=== PATIENT | female | born 1975 | race Caucasian/White ===

== ENCOUNTER 2018-05-04 11:05 | Observation (INO) | payer OTHER ==
[2018-05-04] MEDS ORDERED: ASPIRIN 81 MG CHEWABLE TABLET ONE (11:35)
[2018-05-04] MEDS ORDERED: NA CHLORIDE 0.9% 1,000 ML ONE (11:35)
[2018-05-04 12:00] LABS: Absolute Lymphocytes (CBC) 2.6 K/uL (0.7-4.9); Absolute Monocytes 0.6 K/uL (0.1-1.3); Absolute Neutrophil 4.3 K/uL (1.8-8.0); Basophils % 0.8 % (0-1.3); Eosinophils % 4.5 % (0-4.4); Hematocrit 39.7 % (36.0-45.0); Lymphocytes % 33.2 % (15.3-44.8); MCH 30.9 pg (27.0-35.0); MCV 88.5 fL (80-100); MPV 7.8 fL (7.6-11.3); Monocytes % 7.1 % (3.3-12.3); RBC Red Blood Cell Count 4.48 M/uL (3.86-4.86)
[2018-05-04 12:01] LABS: Protime INR 1.02
--- NOTE | 2018-05-04 12:08 | EDPHYS ---
Physician Documentation [facility] Name: Skylar Perez Age: 42 yrs Sex: Female : 1975 Arrival Date: 05/04/2018 Time: 11:08 Bed 6 Private MD: Niesha Carney ED Physician Larry Conlye HPI: 05/04 11:55 This 42 yrs old Female presents to ER via Ambulatory with complaints of ramón Palpitations, Numbness Of Arm, Breathing Difficulty. 11:55 The patient presents with a history of irregular heart beat, heart racing. Context: The ramón symptoms occur with light activity. Onset: The symptoms/episode began/occurred just prior to arrival. Modifying factors: The symptoms are aggravated by nothing. Associated signs and symptoms: Pertinent positives: SOB. Severity of symptoms: At their worst the symptoms were mild in the emergency department the symptoms have improved. The patient has not experienced similar symptoms in the past. 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 - Social history:: Smoking status: Patient/guardian denies using tobacco. - Ebola Screening: : Patient denies travel to an Ebola-affected area in the 21 days before illness onset. ROS: 12:04 Constitutional: Negative for fever, chills, and weight loss, Eyes: Negative for injury, ramón pain, redness, and discharge, ENT: Negative for injury, pain, and discharge, Neck: Negative for injury, pain, and swelling, Respiratory: Negative for shortness of breath, cough, wheezing, and pleuritic chest pain, Abdomen/GI: Negative for abdominal pain, nausea, vomiting, diarrhea, and constipation, Back: Negative for injury and pain, : Negative for injury, bleeding, discharge, and swelling, MS/Extremity: Negative for injury and deformity, Skin: Negative for injury, rash, and discoloration, Neuro: Negative for headache, weakness, numbness, tingling, and seizure, Psych: Negative for depression, anxiety, suicide ideation, homicidal ideation, and hallucinations, Allergy/Immunology: Negative for hives, rash, and allergies, Endocrine: Negative for neck swelling, polydipsia, polyuria, polyphagia, and marked weight changes, Hematologic/Lymphatic: Negative for swollen nodes, abnormal bleeding, and unusual bruising. 12:04 Cardiovascular: Positive for chest pain, palpitations. Exam: 12:04 Constitutional: This is a well developed, well nourished patient who is awake, alert, ramón and in no acute distress. Head/Face: Normocephalic, atraumatic. Eyes: Pupils equal round and reactive to light, extra-ocular motions intact. Lids and lashes normal. Conjunctiva and sclera are non-icteric and not injected. Cornea within normal limits. Periorbital areas with no swelling, redness, or edema. ENT: Nares patent. No nasal discharge, no septal abnormalities noted. Tympanic membranes are normal and external auditory canals are clear. Oropharynx with no redness, swelling, or masses, exudates, or evidence of obstruction, uvula midline. Mucous membranes moist. Neck: Trachea midline, no thyromegaly or masses palpated, and no cervical lymphadenopathy. Supple, full range of motion without nuchal rigidity, or vertebral point tenderness. No Meningismus. Chest/axilla: Normal chest wall appearance and motion. Nontender with no deformity. No lesions are appreciated. Cardiovascular: Regular rate and rhythm with a normal S1 and S2. No gallops, murmurs, or rubs. Normal PMI, no JVD. No pulse deficits. Respiratory: Lungs have equal breath sounds bilaterally, clear to auscultation and percussion. No rales, rhonchi or wheezes noted. No increased work of breathing, no retractions or nasal flaring. Abdomen/GI: Soft, non-tender, with normal bowel sounds. No distension or tympany. No guarding or rebound. No evidence of tenderness throughout. Back: No spinal tenderness. No costovertebral tenderness. Full range of motion. Skin: Warm, dry with normal turgor. Normal color with no rashes, no lesions, and no evidence of cellulitis. MS/ Extremity: Pulses equal, no cyanosis. Neurovascular intact. Full, normal range of motion. Neuro: Awake and alert, GCS 15, oriented to person, place, time, and situation. Cranial nerves II-XII grossly intact. Motor strength 5/5 in all extremities. Sensory grossly intact. Cerebellar exam normal. Normal gait. Psych: Awake, alert, with orientation to person, place and time. Behavior, mood, and affect are within normal limits. Vital Signs: 11:12 BP 149 / 88; Pulse 87; Resp 18; Temp 99.0(TE); Pulse Ox 96% on R/A; Weight 90.72 kg aj1 (R); Height 5 ft. 10 in. (177.80 cm) (R); Pain 0/10; 12:24 BP 122 / 91; Pulse 67; Resp 16; Pulse Ox 98% on R/A; la1 13:45 BP 111 / 81; Pulse 60; Resp 13; Pulse Ox 99% on R/A; mh5 14:04 BP 116 / 74; Pulse 71; Resp 16; Pulse Ox 98% on R/A; la1 11:12 Body Mass Index 28.70 (90.72 kg, 177.80 cm) aj1 MDM: 11:14 Patient medically screened. [facility] 12:05 Data reviewed: vital signs, nurses notes, lab test result(s), EKG, radiologic studies, ramón plain films. 05/04 11:17 Order name: Basic Metabolic Panel; Complete Time: 13:25 [facility] 05/04 11:17 Order name: CBC with Diff; Complete Time: 12:16 [facility] 05/04 11:17 Order name: LFT's; Complete Time: 13:25 [facility] 05/04 11:17 Order name: Magnesium; Complete Time: 13:25 [facility] 05/04 11:17 Order name: NT PRO-BNP; Complete Time: 13:25 [facility] 05/04 11:17 Order name: PT-INR; Complete Time: 12:16 [facility] 05/04 11:17 Order name: Troponin (emerg Dept Use Only); Complete Time: 13:25 [facility] 05/04 11:17 Order name: Lipase; Complete Time: 13:25 [facility] 05/04 11:17 Order name: Urine Culture [facility] 05/04 11:17 Order name: TSH; Complete Time: 13:25 [facility] 05/04 12:35 Order name: Urine Dipstick--Ancillary (enter results) eb 05/04 12:35 Order name: Urine --Ancillary (enter results) eb 05/04 13:42 Order name: Urine --Ancillary EDMS 05/04 13:42 Order name: Urine Dipstick-Ancillary [facility] 05/04 11:17 Order name: XRAY Chest (1 view); Complete Time: 13:25 [facility] 05/04 11:17 Order name: EKG; Complete Time: 11: [facility] 05/04 11:17 Order name: Cardiac monitoring; Complete Time: 11:29 [facility] 05/04 11:17 Order name: EKG - Nurse/Tech; Complete Time: 11:29 [facility] 05/04 11:17 Order name: IV Saline Lock; Complete Time: 11:52 [facility] 05/04 11:17 Order name: Labs collected and sent; Complete Time: 11:52 [facility] 05/04 11:17 Order name: O2 Per Protocol; Complete Time: : [facility] 05/04 11:17 Order name: O2 Sat Monitoring; Complete Time: : [facility] 05/04 11:17 Order name: Urine Dipstick-Ancillary (obtain specimen); Complete Time: 12:19 [facility] 05/04 11:17 Order name: Urine Test (obtain specimen); Complete Time: 12:19 [facility] 05/04 12:13 Order name: CONS Physician Consult EDNH Administered Medications: 11:52 Drug: NS 0.9% 1000 ml Route: IV; Rate: 125 ml/hr; Site: right antecubital; la1 11:52 Drug: Aspirin 81 mg Route: PO; la1 12:09 Follow up: Response: No adverse reaction em 12:19 Drug: Lopressor (metoprolol TARTRATE) 50 mg Route: PO; la1 12:28 Follow up: Response: No adverse reaction la1 12:19 Drug: Lovenox 1 mg/kg Route: Sub-Q; Site: right lower abdomen; la1 12:28 Follow up: Response: No adverse reaction la1 12:19 Drug: Pepcid 20 mg Route: IVP; Site: right antecubital; la1 12:28 Follow up: Response: No adverse reaction la1 Disposition: 05/04/18 12:07 Hospitalization ordered by Yun Orozco for Observation. Preliminary diagnosis are Palpitations, Chest pain, unspecified. - Bed requested for Telemetry/MedSurg (observation). - Status is Observation. iw - Condition is Stable. - Problem is new. - Symptoms have improved. UTI on Admission? No Signatures: Dispatcher [employer] EDRimma Fraser, RN RN aj1 Misty Padron RN RN Larry Girard MD MD cha Williams, Irene RN SANDRINE iw Jose Juan Perez RN RN laPaddy Herrera DIVISION CHAIR em Corrections: (The following items were deleted from the chart) 14:35 12:07 Hospitalization Ordered by Yun Orozco MD for Observation. Preliminary diagnosis dw is Palpitations; Chest pain, unspecified. Bed requested for Telemetry/MedSurg (observation). Status is Observation. Condition is Stable. Problem is new. Symptoms have improved. UTI on Admission? No. ramón 15:12 14:35 05/04/2018 12:07 Hospitalization Ordered by Yun Orozco MD for Observation. iw Preliminary diagnosis is Palpitations; Chest pain, unspecified. Bed requested for Telemetry/MedSurg (observation). Status is Observation. Condition is Stable. Problem is new. Symptoms have improved. UTI on Admission? No. dw
--- NOTE | 2018-05-04 12:08 | ER ---
Nurse's Notes [facility] Name: Skylar Perez Age: 42 yrs Sex: Female : 1975 Arrival Date: 05/04/2018 Time: 11:08 Bed 6 Private MD: Niesha Carney Diagnosis: Palpitations;Chest pain, unspecified Presentation: 05/04 11:09 Presenting complaint: Patient states: "I [place] sitting in [place] [employer] [place] and all aj1 of the sudden it felt like my heart was beating out of my chest wall, and I was very short of breath. Right after that my left arm began to tingle" Reports that she has been having chest pain for the past week. Hand flower cheniller are equal. Patient ambulated to triage with a steady gait. Transition of care: patient was not received from another setting of care. Onset of symptoms was May 04, 2018 at 10:40. Risk Assessment: Do you want to hurt yourself or someone else? Patient reports no desire to harm self or others. Initial Sepsis Screen: Does the patient meet any 2 criteria? No. Patient's initial sepsis screen is negative. Does the patient have a suspected source of infection? No. Patient's initial sepsis screen is negative. Care prior to arrival: None. 11:09 Method Of Arrival: Ambulatory aj1 11:09 Acuity: MONIK 3 aj1 Triage Assessment: 11:12 General: Appears in no apparent distress. uncomfortable, Behavior is calm, cooperative, aj1 appropriate for age. Pain: Denies pain. Neuro: Level of Consciousness is awake, alert, obeys commands. Cardiovascular: Patient's skin is warm and dry. Respiratory: Reports shortness of breath that's now resolved the patient reports symptoms have resolved. Respiratory: Onset: The symptoms/episode began/occurred today. 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 - Social history:: Smoking status: Patient/guardian denies using tobacco. - Ebola Screening: : Patient denies travel to an Ebola-affected area in the 21 days before illness onset. Screenin:51 Abuse screen: Denies threats or abuse. Nutritional screening: No deficits noted. la1 Tuberculosis screening: No symptoms or risk factors identified. Fall Risk None identified. Assessment: 11:51 General: Appears in no apparent distress. Behavior is calm, cooperative. Neuro: Level la1 of Consciousness is awake, alert, obeys commands, Oriented to person, place, time, situation. Cardiovascular: Capillary refill < 3 seconds Patient's skin is warm and dry. Rhythm is sinus rhythm. Cardiovascular: Denies chest pain, lightheadedness, palpitations, shortness of breath. Respiratory: Airway is patent Respiratory effort is even, unlabored, Respiratory pattern is regular, symmetrical, Breath sounds are clear bilaterally. GI: No signs and/or symptoms were reported involving the gastrointestinal system. : No signs and/or symptoms were reported regarding the genitourinary system. 12:25 Reassessment: Patient appears in no apparent distress at this time. No changes from la1 previously documented assessment. Patient and/or family updated on plan of care and expected duration. Pain level reassessed. 14:03 Reassessment: Patient appears in no apparent distress at this time. No changes from la1 previously documented assessment. Patient and/or family updated on plan of care and expected duration. Pain level reassessed. Vital Signs: 11:12 BP 149 / 88; Pulse 87; Resp 18; Temp 99.0(TE); Pulse Ox 96% on R/A; Weight 90.72 kg aj1 (R); Height 5 ft. 10 in. (177.80 cm) (R); Pain 0/10; 12:24 BP 122 / 91; Pulse 67; Resp 16; Pulse Ox 98% on R/A; la1 13:45 BP 111 / 81; Pulse 60; Resp 13; Pulse Ox 99% on R/A; mh5 14:04 BP 116 / 74; Pulse 71; Resp 16; Pulse Ox 98% on R/A; la1 11:12 Body Mass Index 28.70 (90.72 kg, 177.80 cm) aj1 ED Course: 11:08 Patient arrived in ED. mr 11:09 Niesha Carney MD is Private Physician. mr 11:11 Triage completed. aj1 11:12 Arm band placed on Patient placed in an exam room. aj1 11:14 Larry Conley MD is Attending Physician. ramón 11:22 Jose Juan Perez, SANDRINE is Primary Nurse. la1 11:41 XRAY Chest (1 view) In Process Unspecified. EDMS 11:51 Placed in gown. Bed in low position. Call light in reach. la1 11:51 No provider procedures requiring assistance completed. Inserted saline lock: 20 gauge la1 in right antecubital area, using aseptic technique. Blood collected. 12:06 Yun Orozco MD is Hospitalizing Provider. ramón Administered Medications: 11:52 Drug: NS 0.9% 1000 ml Route: IV; Rate: 125 ml/hr; Site: right antecubital; la1 11:52 Drug: Aspirin 81 mg Route: PO; la1 12:09 Follow up: Response: No adverse reaction em 12:19 Drug: Lopressor (metoprolol TARTRATE) 50 mg Route: PO; la1 12:28 Follow up: Response: No adverse reaction la1 12:19 Drug: Lovenox 1 mg/kg Route: Sub-Q; Site: right lower abdomen; la1 12:28 Follow up: Response: No adverse reaction la1 12:19 Drug: Pepcid 20 mg Route: IVP; Site: right antecubital; la1 12:28 Follow up: Response: No adverse reaction la1 Outcome: 12:07 Decision to Hospitalize by Provider. ramón 15:12 Patient left the ED. iw Signatures: Dispatcher [employer] Rimma Koenig RN RN aj1 Larry Conley MD MD cha Rivera, Etta Paddy Mullen, FIELD ARTILLERY TARGETING TECHNICIAN FIELD ARTILLERY TARGETING TECHNICIAN Jennifer Singh, SANDRINE DELUCA Jose Juan Perez RN RN Vanesa Flaherty 5
[2018-05-04] MEDS ORDERED: METOPROLOL TAR 50 MG TAB ONE (12:15)
[2018-05-04] MEDS ORDERED: ENOXAPARIN 100 MG/ML SYR SQ ONE (12:15)
[2018-05-04] MEDS ORDERED: FAMOTIDINE 20 MG/2 ML VIAL IV ONE (12:15)
--- NOTE | 2018-05-04 12:40 | RAD REPORT ---
EXAM DESCRIPTION: RAD - Chest Single View - 05/04/2018 11:41 am CLINICAL HISTORY: CHEST PAIN Chest pain. COMPARISON: CHEST SINGLE VIEW dated 03/26/2011; CHEST SINGLE VIEW dated 07/26/2008; CHEST PA AND LAT 2 VIEW dated 10/13/1999 FINDINGS: Portable technique limits examination quality. The lungs are grossly clear. The heart is normal in size. No displaced fractures. IMPRESSION: No acute intrathoracic process suspected.
[2018-05-04 13:06] LABS: ALT/SGPT 29 U/L (12-78); AST/SGOT 18 U/L (15-37); Albumin 3.5 g/dL (3.4-5.0); Alkaline Phosphatase 68 U/L (45-117); BUN Blood Urea Nitrogen 18 mg/dL (7-18); Bicarbonate 26 mmol/L (21-32); Bilirubin Direct < 0.1 mg/dL (0-0.2); Bilirubin Total 0.2 mg/dL (0.2-1.0); Glucose Level 92 mg/dL (74-106); Lipase 125 U/L (73-393); Magnesium 2.1 mg/dL (1.8-2.4); NT PRO-BNP 45 pg/mL (<125); Potassium 3.8 mmol/L (3.5-5.1); Protein, Total 7.3 g/dL (6.4-8.2); Sodium Level 140 mmol/L (136-145); Troponin (Emerg Dept Use Only) < 0.02 ng/mL (0.0-0.045)
[2018-05-04 13:42] LABS: Urine Blood NEGATIVE (NEG); Urine Glucose NEGATIVE (NEG); Urine Protein NEGATIVE (NEG); Urine Specific Gravity 1.015 (1.005-1.030)
[2018-05-04 14:58] VITALS: BMI 28.7
[2018-05-04] MEDS ORDERED: ACETAMINOPHEN 500 MG TAB PO PRN (16:33)
[2018-05-04] MEDS ORDERED: POTASSIUM CL SA 10 MEQ TAB PO ONE (16:34)
[2018-05-04 17:16] VITALS: O2SAT 100
[2018-05-04] MEDS ORDERED: MORPHINE 2 MG/ML SYR IV PRN (18:24)
[2018-05-04] MEDS ORDERED: NITROGLYCERIN 0.4 MG/TAB SL PRN (18:24)
--- NOTE | 2018-05-04 18:28 | P.HP ---
Certification for Inpatient Patient admitted to: Observation With expected LOS: <2 Midnights Practitioner: I am a practitioner with admitting privileges, knowledge of patient current condition, hospital course, and medical plan of care. Services: Services provided to patient in accordance with Admission requirements found in Title 42 Section 412.3 of the Code of Federal Regulations Patient History Date of Service: 05/05/18 Reason for admission: Chest pain/burning History of Present Illness: This is a 43-year-old female with no past medical history who was admitted for chest pain and palpitations. Patient reports burning substernal pain that has been intermittent for the last couple weeks. She denies any radiation of the pain. Denies any nausea, vomiting, abdominal pain, dizziness, shortness of breath, vision changes, syncopal/presyncopal episodes. He states that in the ER , she was given Pepcid which resolved her chest pain. She has not had any recurrent chest pain since then. Allergies azithromycin [From Zithromax Z-Nolan] Allergy (Verified 07/15/11 21:32) Nausea/Vomiting doxycycline Allergy (Verified 07/15/11 21:31) Nausea/Vomiting Home Medications: Topamax 100 mg PO DAILY 07/15/11 Loratadine [Claritin*] 10 mg PO DAILY 05/04/18 Trazodone [Desyrel*] 50 mg PO BID PRN 05/04/18 - Past Medical/Surgical History Has patient received pneumonia vaccine in the past: Yes Diabetic: No - Social History Smoking Status: Never smoker Alcohol use: Yes CD- Drugs: No Caffeine use: Yes Place of Residence: Home Review of Systems Unremarkable Physical Examination - Vital Signs Temperature: 97.4 F Blood Pressure: 111/68 Pulse: 67 Respirations: 18 Pulse Ox (%): 94 - Physical Exam General: Alert, In no apparent distress, Oriented x3 HEENT: Atraumatic, PERRLA, Mucous membr. moist/pink, EOMI, Sclerae nonicteric Neck: Supple, 2+ carotid pulse no bruit, No LAD, Without JVD or thyroid abnormality Respiratory: Clear to auscultation bilaterally, Normal air movement Cardiovascular: Regular rate/rhythm, Normal S1 S2 Gastrointestinal: Normal bowel sounds, No tenderness Musculoskeletal: No tenderness Integumentary: No rashes Neurological: Normal gait, Normal speech, Normal strength at 5/5 x4 extr, Normal tone, Normal affect Lymphatics: No axilla or inguinal lymphadenopathy - Studies Laboratory Data (last 24 hrs) 05/04/18 11:45: PT 12.0, INR 1.02 05/04/18 11:45: WBC 7.8, Hgb 13.9, Hct 39.7, Plt Count 255 05/04/18 11:45: Sodium 140, Potassium 3.8, BUN 18, Creatinine 0.60, Glucose 92, Magnesium 2.1, Total Bilirubin 0.2, AST 18, ALT 29, Alkaline Phosphatase 68, Lipase 125 Assessment and Plan - Plan Chest pain rule out acute myocardial infarction 1. Serial troponins and EKG 2. Anti-platelet therapy, anti coagulation, beta-alexander, statin, and O2 as needed 5. IV morphine for pain 6. GI AND DVT prophylaxis - Advance Directives Does patient have a Living Will: No Does patient have a Durable POA for Healthcare: No
[2018-05-04] MEDS ORDERED: ATORVASTATIN 40 MG TAB PO SCH (21:00)
[2018-05-05 04:43] LABS: Absolute Lymphocytes (CBC) 3.2 K/uL (0.7-4.9); Absolute Monocytes 0.7 K/uL (0.1-1.3); Absolute Neutrophil 3.8 K/uL (1.8-8.0); Hematocrit 37.3 % (36.0-45.0); Lymphocytes % 38.5 % (15.3-44.8); MCH 31.1 pg (27.0-35.0); MCV 89.3 fL (80-100); MPV 8.1 fL (7.6-11.3); Monocytes % 8.6 % (3.3-12.3); RBC Red Blood Cell Count 4.18 M/uL (3.86-4.86)
[2018-05-05 04:56] LABS: Albumin 3.1 g/dL (3.4-5.0); Bilirubin Total 0.2 mg/dL (0.2-1.0); Potassium 4.3 mmol/L (3.5-5.1); Protein, Total 6.4 g/dL (6.4-8.2)
[2018-05-05] MEDS ORDERED: METOPROLOL TAR 25 MG TAB PO SCH (06:00)
--- NOTE | 2018-05-05 07:34 | EKG ---
Test Date: 2018-05-04 Test Time: 20:23:43 Straightening Machine Operator: RT-O MEASUREMENT RESULTS: Intervals: Rate: 58 OK: 186 QRSD: 94 QT: 426 QTc: 418 [place]: P: 76 OK: 186 QRS: 78 T: 62 INTERPRETIVE STATEMENTS: Sinus bradycardia Otherwise normal ECG Compared to ECG 03/27/2011 09:42:13 Sinus rhythm no longer present Electronically Signed On 05-05-18 07:33:23 GARNETT MECHANIC by Chau Najera
--- NOTE | 2018-05-05 07:37 | EKG ---
Test Date: 2018-05-04 Test Time: 11:32:29 Burrito Maker: LA MEASUREMENT RESULTS: Intervals: Rate: 82 AR: 168 QRSD: 92 QT: 366 QTc: 427 [place]: P: 64 AR: 168 QRS: 59 T: 33 INTERPRETIVE STATEMENTS: Normal sinus rhythm with sinus arrhythmia Possible Left atrial enlargement Nonspecific T wave abnormality Abnormal ECG Compared to ECG 03/27/2011 09:42:13 T-wave abnormality now present Electronically Signed On 05-05-18 07:36:54 VALUE ANALYST by Chau Najera
[2018-05-05] MEDS ORDERED: LORATADINE 10 MG TAB PO SCH (09:00)
[2018-05-05] MEDS ORDERED: TOPIRAMATE 100 MG TAB PO SCH (09:00)
[2018-05-05] MEDS ORDERED: ENOXAPARIN 40 MG/0.4 ML SQ SCH (09:00)
[2018-05-05] MEDS ORDERED: ASPIRIN EC 81 MG TAB PO SCH (09:00)
--- NOTE | 2018-05-05 12:47 | CON ---
CARDIOLOGY CONSULT History Of Present Illness: Mrs. Perez is 43. She was sitting in a car and had a 7-second episode of heart racing, beating irregularly. While it was there, she felt it was difficult to breathe. She did not lose consciousness and not in pain. She has not had that before. The patient does not have any history of heart disease. She takes loratadine, trazodone, and Topamax. She has migraine heada ches. No diabetes. No hypertension. No dyslipidemia. She uses no tobacco, rare alcohol. No illic it drugs. Allergies: ALLERGIC TO AZITHROMYCIN, DOXYCYCLINE. Physical Examination: Vital Signs: 5 feet 10 inches, 200 pounds. HEENT: Normal. Lungs: Clear. Heart Exam: Within normal limits. Carotids: No bruit. Extremities: Normal. Diagnostic Data: The electrocardiogram is within normal limits, although there is sinus arrhythmia o n normal finding. Chest x-ray is normal and her cardiac enzymes are normal. All of her blood tests look normal. Impression: My impression is the patient had transient arrhythmia. I think we should have her get a n echocardiogram and wear a monitor for a month and see what we learn. Based on her age and overall health, the most likely arrhythmia would be supraventricular tachycardia AV node re-entrant, but it c ould be atrial fibrillation or flutter, although 7-second spells of atrial fibrillation are very unus ual. At this point, I would not start a medication. I would allow her to do echo, get the monitor placed, and see her in the office in about a month. LEOBARDO/KARISSA Voice ID: [id number] Report ID: [id number]
[2018-05-05 19:04] VITALS: BP 111/68; TEMP 97.4
--- NOTE | 2018-05-05 19:06 | P.SSS ---
Patient History Date of Service: 05/05/18 Reason for admission: Chest pain/burning History of Present Illness: This is a 43-year-old female with no past medical history who was admitted for chest pain and palpitations. Patient reports burning substernal pain that has been intermittent for the last couple weeks. She denies any radiation of the pain. Denies any nausea, vomiting, abdominal pain, dizziness, shortness of breath, vision changes, syncopal/presyncopal episodes. He states that in the ER , she was given Pepcid which resolved her chest pain. She has not had any recurrent chest pain since then. Allergies azithromycin [From Zithromax Z-Nolan] Allergy (Verified 07/15/11 21:32) Nausea/Vomiting doxycycline Allergy (Verified 07/15/11 21:31) Nausea/Vomiting Home Medications: Topamax 100 mg PO DAILY 07/15/11 RX: Loratadine [Claritin*] 10 mg PO DAILY 05/04/18 RX: Trazodone [Desyrel*] 50 mg PO BID PRN 05/04/18 - Past Medical/Surgical History Has patient received pneumonia vaccine in the past: Yes Diabetic: No - Social History Smoking Status: Never smoker Alcohol use: Yes CD- Drugs: No Caffeine use: Yes Place of Residence: Home Review of Systems As noted Physical Examination - Vital Signs Temperature: 97.4 F Blood Pressure: 111/68 Pulse: 67 Respirations: 18 Pulse Ox (%): 94 - Physical Exam General: Alert, In no apparent distress, Oriented x3 HEENT: Atraumatic, PERRLA, Mucous membr. moist/pink, EOMI, Sclerae nonicteric Neck: Supple, 2+ carotid pulse no bruit, No LAD, Without JVD or thyroid abnormality Respiratory: Clear to auscultation bilaterally, Normal air movement Cardiovascular: Regular rate/rhythm, Normal S1 S2 Gastrointestinal: Normal bowel sounds, No tenderness Musculoskeletal: No tenderness Integumentary: No rashes Neurological: Normal gait, Normal speech, Normal strength at 5/5 x4 extr, Normal tone, Normal affect Lymphatics: No axilla or inguinal lymphadenopathy Treatment Summary: Patient was admitted for chest pain, rule out acute myocardial infarction. She was seen by Cardiology, cleared for discharge from cardiology point of view. If troponins remain negative, labs remained stable, vitals also remained stable throughout the stay. Per cardiology, she does see an event monitor and echo. But that will be done as an outpatient basis with cardiology. Differential pad extractor tender given to patient upon discharge. At the time of discharge, patient was symptom free, hemodynamically stable and she was tolerating and regular diet without any concerns. Her diagnosis and symptoms were explained to her, all questions were answered and patient verbalized understanding. - Disposition Discharge Date: 05/05/18 Disposition: ROUTINE DISCHARGE Condition: GOOD Patient Discharge Instructions: Please Follow up with your primary care physician in 1 week. Please Follow up with cardiology in 3-4 weeks. Information provided Diet: Regular Activity: Ad benjamin Physician Review: Patient Assessed, Agree with Above Assessment and Plan Time Spent Managing Pts Care (In Minutes): 45
== END 2018-05-05 14:10 | disposition home or self-care (01) ==
LOC: ER 11:05 → ERHOLD 12:08 → 4TH 15:04
PROVIDERS: ADMIT Family Medicine; ATTEND Family Medicine
DX: R07.9 Chest pain, unspecified (principal); R00.2 Palpitations
CPT/HCPCS: 36415; 71045; 80048; 80053; 80061; 80076; 81003; 81025; 83690; 83735; 83880; 84443; 84484; 85025; 85610; 87086; 87088; 93005; 94760; 96372; 96374; 99284; G0378; J1650; J7030

== ENCOUNTER 2019-06-20 18:30 | Emergency (ER) | payer OTHER ==
--- OUTSIDE RECORDS SUMMARY | 2019-06-20 18:33 | XMS REPORT ---
:1975 Author Organization eClinicalWorks Care Team Providers Name Role Phone Niesha Carney Provider Role Unavailable Allergies No Known Allergies Problems Problem Type Condition Code Onset Dates Condition Status Problem Encounter for gynecological Z01.419 Active examination without abnormal finding Problem BMI 29.0-29.9,adult Z68.29 Active Problem Encounter for screening mammogram Z12.31 Active for breast cancer Problem Hyperglycemia R73.9 Active Problem Anxiety F41.9 Active Problem Migraine G43.909 Active Medications No Known Medications Results No Known Results Summary Purpose eClinicalWorks Submission
[2019-06-20] MEDS ORDERED: KETOROLAC 30 MG/ML INJ ONE (20:18)
[2019-06-20] MEDS ORDERED: AMLODIPINE 5 MG TAB ONE ×2 (20:19→20:36)
--- NOTE | 2019-06-20 20:41 | EDPHYS ---
Physician Documentation [facility] Name: Skylar Perez Age: 44 yrs Sex: Female : 1975 Arrival Date: 06/20/2019 Time: 18:32 Bed 13 Private MD: Niesha Carney ED Physician Larry Conley HPI: 06/20 20:11 This 44 yrs old Female presents to ER via Ambulatory with complaints of ramón Blurred Vision, Eye Problem. 20:11 The patient is experiencing pain, bonita right eye. Onset: The symptoms/episode ramón began/occurred 3 day(s) ago. 20:12 Duration: the symptoms are intermittent. Aggravated by nothing. Alleviated by nothing. ramón Associated signs and symptoms: Pertinent positives: headache. The patient complains of pain to the top of head, forehead and right eye. Onset: The symptoms/episode began/occurred 2 day(s) ago. Associated signs and symptoms: The patient has no apparent associated signs or symptoms. Historical: - Allergies: 18:44 Azithromycin; ss 18:44 Doxycycline; ss - PMHx: 18:44 Migraines; Chronic fatigue syndrome; ss - PSHx: 18:44 oral surgery; ss - Immunization history:: Adult Immunizations up to date. - Social history:: Smoking status: Patient/guardian denies using tobacco. - Ebola Screening: : Patient denies exposure to infectious person Patient denies travel to an Ebola-affected area in the 21 days before illness onset. - Family history:: not pertinent. ROS: 20:12 Constitutional: Negative for fever, chills, and weight loss, ENT: Negative for injury, ramón pain, and discharge, Neck: Negative for injury, pain, and swelling, Cardiovascular: Negative for chest pain, palpitations, and edema, Respiratory: Negative for shortness of breath, cough, wheezing, and pleuritic chest pain, Abdomen/GI: Negative for abdominal pain, nausea, vomiting, diarrhea, and constipation, Back: Negative for injury and pain, : Negative for injury, bleeding, discharge, and swelling, MS/Extremity: Negative for injury and deformity, Skin: Negative for injury, rash, and discoloration, Psych: Negative for depression, anxiety, suicide ideation, homicidal ideation, and hallucinations, Allergy/Immunology: Negative for hives, rash, and allergies, Endocrine: Negative for neck swelling, polydipsia, polyuria, polyphagia, and marked weight changes, Hematologic/Lymphatic: Negative for swollen nodes, abnormal bleeding, and unusual bruising. 20:12 Eyes: Positive for pain, redness. 20:12 Neuro: Positive for headache. Exam: 20:12 Constitutional: This is a well developed, well nourished patient who is awake, alert, ramón and in no acute distress. Head/Face: Normocephalic, atraumatic. ENT: Nares patent. No nasal discharge, no septal abnormalities noted. Tympanic membranes are normal and external auditory canals are clear. Oropharynx with no redness, swelling, or masses, exudates, or evidence of obstruction, uvula midline. Mucous membranes moist. Neck: Trachea midline, no thyromegaly or masses palpated, and no cervical lymphadenopathy. Supple, full range of motion without nuchal rigidity, or vertebral point tenderness. No Meningismus. Chest/axilla: Normal chest wall appearance and motion. Nontender with no deformity. No lesions are appreciated. Cardiovascular: Regular rate and rhythm with a normal S1 and S2. No gallops, murmurs, or rubs. Normal PMI, no JVD. No pulse deficits. Respiratory: Lungs have equal breath sounds bilaterally, clear to auscultation and percussion. No rales, rhonchi or wheezes noted. No increased work of breathing, no retractions or nasal flaring. Abdomen/GI: Soft, non-tender, with normal bowel sounds. No distension or tympany. No guarding or rebound. No evidence of tenderness throughout. Back: No spinal tenderness. No costovertebral tenderness. Full range of motion. Skin: Warm, dry with normal turgor. Normal color with no rashes, no lesions, and no evidence of cellulitis. MS/ Extremity: Pulses equal, no cyanosis. Neurovascular intact. Full, normal range of motion. Neuro: Awake and alert, GCS 15, oriented to person, place, time, and situation. Cranial nerves II-XII grossly intact. Motor strength 5/5 in all extremities. Sensory grossly intact. Cerebellar exam normal. Normal gait. Psych: Awake, alert, with orientation to person, place and time. Behavior, mood, and affect are within normal limits. 20:12 Eyes: Periorbital structures: appear normal, no acute changes, Pupils: no acute changes, equal, round, and reactive to light and accomodation, Extraocular movements: no acute changes, Conjunctiva: subconjunctival hemorrhage(s), seen in the right eye, at 3 o'clock. Vital Signs: 18:44 BP 147 / 91; Pulse 87; Resp 17; Temp 98.8(TE); Pulse Ox 98% on R/A; Weight 86.18 kg; ss Height 5 ft. 10 in. (177.80 cm); Pain 3/10; 21:15 BP 133 / 80; Pulse 80; Resp 18; Temp 98; Pulse Ox 100% on R/A; mg2 18:44 Body Mass Index 27.26 (86.18 kg, 177.80 cm) ss MDM: 19:20 Patient medically screened. [facility] 20:14 Data reviewed: vital signs, nurses notes, lab test result(s), radiologic studies, CT ramón scan. 06/20 20:30 Order name: Urine Dipstick--Ancillary (enter results) mw2 06/20 20:10 Order name: CT Head Brain wo Cont [facility] 06/20 20:10 Order name: Urine Dipstick-Ancillary (obtain specimen); Complete Time: 20:23 [facility] 06/20 20:30 Order name: Urine Test (obtain specimen); Complete Time: 20:39 [facility] Administered Medications: 20:39 Drug: Norvasc 5 mg Route: PO; 20:39 Drug: TORadol 60 mg Route: IM; Site: left gluteus; Disposition: 06/20/19 20:40 Discharged to Home. Impression: Headache, Essential (primary) hypertension. - Condition is Stable. - Discharge Instructions: General Headache Without Cause, Migraine Headache, Hypertension, Hypertension, Rfdw-zs-Bszt, Migraine Headache, Zgpf-sx-Evrk, How to Take Your Blood Pressure, Ntzi-ef-Laul, General Headache Without Cause, Sctk-ib-Bhma, Managing Your Hypertension. - Prescriptions for Fioricet with Codeine 50- 325-40-30 mg Oral capsule - take 1 capsule by ORAL route every 4 hours as needed not to exceed 6 capsules per 24hrs; 24 capsule. Norvasc 2.5 mg Oral tablet - take 1 tablet by ORAL route once daily; 20 tablet. Zofran 4 mg Oral Tablet - take 1 tablet by ORAL route every 12 hours As needed; 14 tablet. - Medication Reconciliation Form, Thank You Letter, Antibiotic Education, Prescription Opioid Use form. - Follow up: Niesha Duqueurban; When: 2 - 3 days; Reason: Recheck today's complaints, Continuance of care, Re-evaluation by your physician. Follow up: Aaron Montoya; When: 2 - 3 days; Reason: Recheck today's complaints, Re-evaluation by your physician. - Problem is new. - Symptoms have improved. Signatures: Dispatcher [employer] EDVA Larry Conley MD MD cha Smirch, Shelby, RN RN ss Willi Benavides Michele, RN RN mg2 Corrections: (The following items were deleted from the chart) 21:16 20:40 06/20/2019 20:40 Discharged to Home. Impression: Headache; Essential (primary) mg2 hypertension. Condition is Stable. Discharge Instructions: General Headache Without Cause, Migraine Headache, Hypertension, Hypertension, Vurt-sw-Mzut, Migraine Headache, Ucvs-uc-Kukh, How to Take Your Blood Pressure, Imru-hx-Xrqb, General Headache Without Cause, Otfw-tu-Lsrd, Managing Your Hypertension. Prescriptions for Fioricet with Codeine 84-574-19-30 mg Oral capsule - take 1 capsule by ORAL route every 4 hours as needed not to exceed 6 capsules per 24hrs; 24 capsule, Norvasc 2.5 mg Oral tablet - take 1 tablet by ORAL route once daily; 20 tablet, Zofran 4 mg Oral Tablet - take 1 tablet by ORAL route every 12 hours As needed; 14 tablet. and Forms are Medication Reconciliation Form, Thank You Letter, Antibiotic Education, Prescription Opioid Use. Follow up: Niesha Duqueurban; When: 2 - 3 days; Reason: Recheck today's complaints, Continuance of care, Re-evaluation by your physician. Follow up: Aaron Montoya; When: 2 - 3 days; Reason: Recheck today's complaints, Re-evaluation by your physician. Problem is new. Symptoms have improved. ramón
--- NOTE | 2019-06-20 20:41 | ER ---
Nurse's Notes [facility] Name: Skylar Perez Age: 44 yrs Sex: Female : 1975 Arrival Date: 06/20/2019 Time: 18:32 Bed 13 Private MD: Niesha Carney Diagnosis: Headache;Essential (primary) hypertension Presentation: 06/20 18:41 Presenting complaint: Patient states: Bloody sclera x 2 days with intermittent "mild" ss blurry to R eye that began about 1 hour ago. Transition of care: patient was not received from another setting of care. Onset of symptoms was June 18, 2019. Risk Assessment: Do you want to hurt yourself or someone else? Patient reports no desire to harm self or others. Initial Sepsis Screen: Does the patient meet any 2 criteria? No. Patient's initial sepsis screen is negative. Does the patient have a suspected source of infection? No. Patient's initial sepsis screen is negative. Care prior to arrival: None. 18:41 Method Of Arrival: Ambulatory ss 18:41 Acuity: MONIK 2 ss Historical: - Allergies: 18:44 Azithromycin; ss 18:44 Doxycycline; ss - PMHx: 18:44 Migraines; Chronic fatigue syndrome; ss - PSHx: 18:44 oral surgery; ss - Immunization history:: Adult Immunizations up to date. - Social history:: Smoking status: Patient/guardian denies using tobacco. - Ebola Screening: : Patient denies exposure to infectious person Patient denies travel to an Ebola-affected area in the 21 days before illness onset. - Family history:: not pertinent. Screenin:20 Abuse screen: Denies threats or abuse. Denies injuries from another. Nutritional mg2 screening: No deficits noted. Tuberculosis screening: No symptoms or risk factors identified. 19:20 Fall Risk None identified. mg2 Assessment: 19:10 General: Appears in no apparent distress. comfortable, Behavior is calm, cooperative. mg2 Pain: Complains of pain in top of head. Neuro: Level of Consciousness is awake, alert, obeys commands, Oriented to person, place, time, situation. Cardiovascular: Capillary refill < 3 seconds. Respiratory: Airway is patent Respiratory effort is even, unlabored, Respiratory pattern is regular, symmetrical. GI: No signs and/or symptoms were reported involving the gastrointestinal system. : No signs and/or symptoms were reported regarding the genitourinary system. EENT: Eyes redness or bleeding in th right eye. Derm: Skin is intact, is healthy with good turgor, Skin is pink, warm \\T\\ dry. normal. Musculoskeletal: Circulation, motion, and sensation intact. Capillary refill < 3 seconds. Vital Signs: 18:44 BP 147 / 91; Pulse 87; Resp 17; Temp 98.8(TE); Pulse Ox 98% on R/A; Weight 86.18 kg; ss Height 5 ft. 10 in. (177.80 cm); Pain 3/10; 21:15 BP 133 / 80; Pulse 80; Resp 18; Temp 98; Pulse Ox 100% on R/A; mg2 18:44 Body Mass Index 27.26 (86.18 kg, 177.80 cm) ED Course: 18:32 Patient arrived in ED. as 18:32 Cullen Diaz MD is Private Physician. as 18:32 Niesha Carney MD is Private Physician. as 18:43 Triage completed. ss 18:44 Arm band placed on left wrist. ss 19:20 Larry Conley MD is Attending Physician. ramón 20:14 Brandyn Nieves RN is Primary Nurse. mg2 20:27 CT completed. Patient tolerated procedure well. Patient moved back from CT. bq 20:27 CT Head Brain wo Cont In Process Unspecified. EDMS 20:40 Niesha Carney MD is Referral Physician. ramón 20:40 Aaron Montoya MD is Referral Physician. ramón 21:15 Patient has correct armband on for positive identification. mg2 21:15 No provider procedures requiring assistance completed. Patient did not have IV access mg2 during this emergency room visit. Administered Medications: 20:39 Drug: Norvasc 5 mg Route: PO; wh 20:39 Drug: TORadol 60 mg Route: IM; Site: left gluteus; wh Outcome: 20:40 Discharge ordered by . ramón 21:15 Discharged to home ambulatory. mg2 21:15 Condition: stable 21:15 Discharge instructions given to patient, family, Instructed on discharge instructions, follow up and referral plans. medication usage, Demonstrated understanding of instructions, follow-up care, medications, Prescriptions given X 3. 21:16 Patient left the ED. mg2 Signatures: Dispatcher [employer] EDPR Larry Conley MD MD ramón Quilty, Melissa bq Daniel, Amna as Smirch, Lexi, RN RN ss Willi Benavides Michele RN RN mg2 Corrections: (The following items were deleted from the chart) 18:44 18:41 Acuity: MONIK 3 ss
[2019-06-20 20:45] LABS: Urine Blood NEGATIVE (NEG); Urine Glucose NEGATIVE (NEG); Urine Protein NEGATIVE (NEG); Urine Specific Gravity <1.005 (1.005-1.030); Urine pH 5.5 (5.0-7.0)
--- NOTE | 2019-06-20 20:47 | RAD REPORT ---
EXAM DESCRIPTION: CT - Head Brain Wo Cont - 06/20/2019 8:27 pm CLINICAL HISTORY: Right eye visual changes COMPARISON: CT head July 2008 TECHNIQUE: Axial 5 mm thick images of the head were obtained without IV contrast. All CT scans are performed using dose optimization technique as appropriate and may include automated exposure control or mA/KV adjustment according to patient size. FINDINGS: No intracranial hemorrhage, mass, edema or shift of mid-line structures. No acute infarcti on changes seen. No abnormal extra-axial fluid collections. Ventricles are normal. Mastoid air cells and visualized portions of the paranasal sinuses are clear. No acute bony findings. IMPRESSION: Negative non-contrast CT head examination.
[2019-06-20 21:52] VITALS: BP 133/80; TEMP 98; O2SAT 100
== END 2019-06-20 21:16 | disposition home or self-care (01) ==
LOC: ER 18:30
DX: R51 Headache (principal); I10 Essential (primary) hypertension; Z88.3 Allergy status to other anti-infective agents
CPT/HCPCS: 70450; 81003; 96372; 99284

== ENCOUNTER 2020-06-10 11:34 | Emergency (ER) | payer OTHER ==
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
--- OUTSIDE RECORDS SUMMARY | 2020-06-10 11:36 | XMS REPORT | Continuity of Care Document ---
:1975 Author Organization [facility] t Address [address] [place] [address] Care Team Providers Name Role Phone Unavailable Unavailable Unavailable Problems This patient has no known problems. Allergies, Adverse Reactions, Alerts Allergy Allergy Status Severity Reaction(s) Onset Inactive Treating Comm ents Source Name Type Date Date Clinician doxycycl Adverse [facility] Zithroma Adverse Active vomiting [facility] Medications Ordered Filled Start Stop Current Ordering Indication Dosage Frequency Signature Comments Components Source Medication Medication Date Date Medication? Clinician (SIG) Name Name BusPIRone BusPIRone 2018-0 Yes Terrence [address] [facility] HCl HCl 6-07 Rekhi as needed [facility] Ondansetron Ondansetron 2017-06 Yes Terrence [address] [facility] HCl HCl 2-31 Rekhi [facility] Cyclobenzap Cyclobenzap Yes Terrence [address] [facility] rine HCl rine HCl Rekhi as needed [facility] Meloxicam Meloxicam Yes Terrence [address] [facility] Loratadine Loratadine Yes Terrence [address] [facility] Trazodone Trazodone Yes Terrence [address] [facility] HCl HCl Rekhi at bedtime [facility] needed [facility] Aczone Aczone Yes Terrence [address] [facility] R[facility]hi applicatio [facility] Procedures This patient has no known procedures. Encounters Start End Encounter Admission Attending Care Care Encounter Source Date/Time Date/Time Type Type Clinicians Facility Department ID 2020-05-11 2020-05-11 [id number] 2020-02-29 2020-02-29 [facility] [id number] [facility] 2020-02-27 2020-02-27 [facility] [id number] [facility] 2020-02-26 2020-02-26 [facility] [id number] [facility] 2020-02-26 2020-02-26 [facility] [id number] [facility] 2020-02-25 2020-02-25 [facility] [id number] [facility] 2019-12-25 2019-12-25 [facility] [id number] [facility] 11[facility]17[facility]00 11:17:00 [facility] 2019-02-13 2019-02-13 [facility] [id number] [facility] 11:[facility] 11[facility]33[facility]00 [facility] 2019-02-13 2019-02-13 [facility] [id number] [facility] 10:30[facility]00 10:30:00 [facility] 2018-11-14 2018-11-14 Outpatient Ruby Kaye [id number] [facility] 11:20[facility]00 11:20:00 [facility] 2018-06-19 2018-06-19 Outpatient Ruby Kaye [id number] [facility] 15:00:00 15:00:00 [facility] 2018-06-09 2018-06-09 Outpatient Ruby Kaye [id number] [facility] 10:15:00 10:15:00 [facility] ent Clinics Results This patient has no known results.
[2020-06-10 12:10] LABS: Protime INR 1.02
[2020-06-10 12:16] LABS: Absolute Lymphocytes (CBC) 3.3 K/uL (0.7-4.9); Hematocrit 41.8 % (36.0-45.0); Lymphocytes % 37.4 % (15.3-44.8); MPV 7.9 fL (7.6-11.3)
[2020-06-10] MEDS ORDERED: ASPIRIN 81 MG CHEWABLE TABLET ONE (12:17)
[2020-06-10] MEDS ORDERED: MORPHINE 4 MG/ML SYR ONE (12:17)
[2020-06-10] MEDS ORDERED: ONDANSETRON 4 MG/2 ML VIAL ONE (12:18)
[2020-06-10 12:24] LABS: ALT/SGPT 20 U/L (12-78); AST/SGOT 15 U/L (15-37); Albumin 3.9 g/dL (3.4-5.0); Alkaline Phosphatase 61 U/L (45-117); BUN Blood Urea Nitrogen 15 mg/dL (7-18); Bicarbonate 24 mmol/L (21-32); Bilirubin Direct 0.1 mg/dL (0-0.2); Bilirubin Total 0.5 mg/dL (0.2-1.0); Glucose Level 93 mg/dL (74-106); Magnesium 2.1 mg/dL (1.8-2.4); NT PRO-BNP 57 pg/mL (<125); Potassium 3.4 mmol/L (3.5-5.1); Protein, Total 7.7 g/dL (6.4-8.2); Sodium Level 140 mmol/L (136-145); Troponin (Emerg Dept Use Only) < 0.02 ng/mL (0.0-0.045)
[2020-06-10] MEDS ORDERED: ACETAMINOPHEN 325 MG TABLET ONE (13:27)
--- NOTE | 2020-06-10 13:37 | RAD REPORT ---
EXAM DESCRIPTION: RAD - Chest Single View - 06/10/2020 12:36 pm CLINICAL HISTORY: CHEST PAIN, left arm pain COMPARISON: Portable April 2018 TECHNIQUE: AP portable chest image was obtained 06/10/2020 12:36 pm . FINDINGS: Lungs are clear. Heart and vasculature are normal. No measurable pleural effusion and no p neumothorax. No acute bony abnormality seen. No acute aortic findings suspected. IMPRESSION: No acute cardiopulmonary process. No significant change from comparison study.
--- NOTE | 2020-06-10 16:26 | ER ---
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 Intermittent, sharp, burning with nausea. Also has anxiety and seeing therapist. Coronavirus screen: Client denies travel out of the [place] in the last 14 days. nausea, Client presents with at least one sign or symptom that may indicate coronavirus-19. Standard/surgical mask placed on the client. Provider contacted for isolation considerations. Ebola Screen: Patient negative for fever greater than or equal to 101.5 degrees Fahrenheit, and additional compatible Ebola Virus Disease symptoms Patient denies exposure to infectious person. Patient denies travel to an Ebola-affected area in the 21 days before illness onset. No symptoms or risks identified at this time. Initial Sepsis Screen: Does the patient meet any 2 criteria? No. Patient's initial sepsis screen is negative. Does the patient have a suspected source of infection? No. Patient's initial sepsis screen is negative. Risk Assessment: Do you want to hurt yourself or someone else? Patient reports no desire to harm self or others. Onset of symptoms was June 10, 2020. 11:39 Acuity: MONIK 3 ca1 11:39 Method Of Arrival: Wheelchair ca1 Triage Assessment: 11:55 Cardiovascular: Rhythm is sinus rhythm. 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 - Social history:: Smoking status: Patient denies any tobacco usage or history of. Screenin:07 Abuse screen: Denies threats or abuse. Nutritional screening: No deficits noted. em Tuberculosis screening: No symptoms or risk factors identified. Fall Risk None identified. Assessment: 11:55 General: Appears in no apparent distress. comfortable. Pain: Complains of pain in em mid-sternal area Pain does not radiate. Pain currently is 0 out of 10 on a pain scale. Pain began 1 hour ago. Neuro: Level of Consciousness is awake, alert, obeys commands, Oriented to person, place, time, situation, Appropriate for age. Cardiovascular: Capillary refill < 3 seconds Patient's skin is warm and dry. Respiratory: Airway is patent Respiratory effort is even, unlabored, Respiratory pattern is regular, symmetrical. GI: Patient currently denies nausea, vomiting. Derm: Skin is intact, is healthy with good turgor, Skin is pink, warm \T\ dry. Musculoskeletal: Capillary refill < 3 seconds, Range of motion: intact in all extremities. 12:00 Reassessment: will hold nausea and pain medication Patient denies pain at this time. em 13:10 Reassessment: Patient appears in no apparent distress at this time. Patient and/or em family updated on plan of care and expected duration. Pain level reassessed. Patient is alert, oriented x 3, equal unlabored respirations, skin warm/dry/pink. reports headache, provider notified. 15:50 Reassessment: Patient appears in no apparent distress at this time. Patient and/or em family updated on plan of care and expected duration. Pain level reassessed. Patient is alert, oriented x 3, equal unlabored respirations, skin warm/dry/pink. Vital Signs: 11:39 BP 137 / 90; Pulse 88; Resp 17 S; Temp 99.4(TE); Pulse Ox 96% on R/A; Weight 91.17 kg ca1 (R); Height 5 ft. 11 in. (180.34 cm) (R); Pain 4/10; 13:02 BP 122 / 81; Pulse 67; Resp 18; Pulse Ox 99% on R/A; Pain 0/10; em 14:02 BP 115 / 71; Pulse 72; Resp 18; Pulse Ox 99% on R/A; ph 14:45 BP 132 / 89; Pulse 80; Resp 18; Pulse Ox 99% on R/A; Pain 0/10; em 11:39 Body Mass Index 28.03 (91.17 kg, 180.34 cm) ca1 ED Course: 11:35 Patient arrived in ED. rg4 11:37 [facility] pm1 11:37 Nehemias Sierra MD is Attending Physician. pm1 11:50 Lab(s) recollected, by ED staff, sent to lab. EKG done, by ED staff, reviewed by [email or web address] Antonio Maharaj NP. Inserted saline lock: 20 gauge in right upper arm, using aseptic technique. Blood collected. 11:54 Triage completed. ca1 11:55 Arm band placed on right wrist. EKG completed in triage. Results shown to MD. ca1 11:59 Paddy Jara, RN is Primary Nurse. em 12:07 Patient has correct armband on for positive identification. Placed in gown. Bed in low em position. Call light in reach. Side rails up X2. Adult w/ patient. gambling monitor on. Pulse ox on. NIBP on. 12:34 XRAY Chest (1 view) In Process Unspecified. EDMS 16:41 No provider procedures requiring assistance completed. IV discontinued, intact, em bleeding controlled, No redness/swelling at site. Pressure dressing applied. Administered Medications: 12:07 Drug: Aspirin 325 mg Route: PO; em 12:30 Follow up: Response: No adverse reaction em 13:15 Drug: Tylenol 650 mg Route: PO; em 14:50 Follow up: Response: No adverse reaction; Marked relief of symptoms; Pain is decreased em 16:41 Not Given (Patient Refused): morphine 4 mg IVP once; RASS on ADMIN: Combtv4, Very em Agttd3, Agttd2, Rstlss1, AlertClm0, Drwsy-1, Lt Sdtn-2, Mod Sdtn-3, Dp Sdtn-4, UnArsble-5 16:41 Not Given (Patient Refused): Zofran (Ondansetron) 4 mg IVP once; over 2 minutes em Outcome: 16:26 Discharge ordered by MD. pm1 16:41 Discharged to home ambulatory, with family. em 16:41 Condition: good 16:41 Discharge instructions given to patient, Instructed on discharge instructions, follow up and referral plans. Demonstrated understanding of instructions, follow-up care. 16:42 Patient left the ED. em Signatures: Dispatcher [employer] EDPaddy Calderón RN RN em Yaritza Sepulveda RN RN Antonio Maharaj NP ECHO VASCULAR TECH pm1 Nancy Jean rg4 Crystal Sanchez RN RN ca1 Nichol Lau [email or web address] Corrections: (The following items were deleted from the chart) 11:54 11:39 Coronavirus screen: Client denies travel out of the [place] in the last 14 days. At ca1 this time, the client does not indicate any symptoms associated with coronavirus-19. ca1
--- NOTE | 2020-06-10 16:26 | EDPHYS ---
Physician Documentation [facility] Name: Skylar Perez Age: 45 yrs Sex: Female : 1975 Arrival Date: 06/10/2020 Time: 11:35 Bed 5 Private MD: ED Physician Nehemias Sierra CODING SPEC: 06/10 11:55 LMP 05/17/2020 ca1 Historical: - Allergies: 11:55 Azithromycin; ca1 11:55 Doxycycline; ca1 - PMHx: 11:55 Chronic fatigue syndrome; Migraines; Anxiety; ca1 - PSHx: 11:55 oral surgery; ca1 - Immunization history:: Adult Immunizations up to date, Flu vaccine is up to date. - Social history:: Smoking status: Patient denies any tobacco usage or history of. Vital Signs: 11:39 BP 137 / 90; Pulse 88; Resp 17 S; Temp 99.4(TE); Pulse Ox 96% on R/A; Weight 91.17 kg ca1 (R); Height 5 ft. 11 in. (180.34 cm) (R); Pain 4/10; 13:02 BP 122 / 81; Pulse 67; Resp 18; Pulse Ox 99% on R/A; Pain 0/10; em 14:02 BP 115 / 71; Pulse 72; Resp 18; Pulse Ox 99% on R/A; ph 14:45 BP 132 / 89; Pulse 80; Resp 18; Pulse Ox 99% on R/A; Pain 0/10; em 11:39 Body Mass Index 28.03 (91.17 kg, 180.34 cm) ca1 MDM: 11:38 Patient medically screened. pm1 12:51 Counseling: I had a detailed discussion with the patient and/or guardian regarding: lab pm1 results, radiology results, Patient does not want to be admitted if possible. Therefore discussed with her the option to repeat troponin at 4 hours since she has a typical presentation of chest pain with history of anxiety. Patient wants to repeat troponin the ER. 15:31 Data reviewed: vital signs. pm1 16:24 Counseling: I had a detailed discussion with the patient and/or guardian regarding: the pm1 historical points, exam findings, and any diagnostic results supporting the discharge/admit diagnosis, lab results, the need for outpatient follow up, to return to the emergency department if symptoms worsen or persist or if there are any questions or concerns that arise at home. 06/10 11:49 Order name: Basic Metabolic Panel; Complete Time: 12:27 pm1 06/10 11:49 Order name: CBC with Diff; Complete Time: 12:27 pm1 06/10 11:49 Order name: LFT's; Complete Time: 12:27 pm1 06/10 11:49 Order name: Magnesium; Complete Time: 12:27 pm1 06/10 11:49 Order name: NT PRO-BNP; Complete Time: 12:27 pm06/10 11:49 Order name: PT-INR; Complete Time: 12:27 pm1 06/10 11:49 Order name: Troponin (emerg Dept Use Only); Complete Time: 12:27 pm06/10 11:49 Order name: XRAY Chest (1 view); Complete Time: 13:47 pm1 06/10 11:49 Order name: D-Dimer; Complete Time: 12:27 pm1 06/10 11:49 Order name: TSH; Complete Time: 12:27 pm06/10 15:42 Order name: Troponin (emerg Dept Use Only); Complete Time: 16:18 em 06/10 11:49 Order name: EKG; Complete Time: 11:49 pm1 06/10 11:49 Order name: Cardiac monitoring; Complete Time: 11:59 pm1 06/10 11:49 Order name: EKG - Nurse/Tech; Complete Time: 11:59 pm1 06/10 11:49 Order name: IV Saline Lock; Complete Time: 12:07 pm1 06/10 11:49 Order name: Labs collected and sent; Complete Time: 11:59 pm1 06/10 11:49 Order name: O2 Per Protocol; Complete Time: 11:59 pm06/10 11:49 Order name: O2 Sat Monitoring; Complete Time: 11:59 pm1 Administered Medications: 12:07 Drug: Aspirin 325 mg Route: PO; em 12:30 Follow up: Response: No adverse reaction em 13:15 Drug: Tylenol 650 mg Route: PO; em 14:50 Follow up: Response: No adverse reaction; Marked relief of symptoms; Pain is decreased em 16:41 Not Given (Patient Refused): morphine 4 mg IVP once; RASS on ADMIN: Combtv4, Very em Agttd3, Agttd2, Rstlss1, AlertClm0, Drwsy-1, Lt Sdtn-2, Mod Sdtn-3, Dp Sdtn-4, UnArsble-5 16:41 Not Given (Patient Refused): Zofran (Ondansetron) 4 mg IVP once; over 2 minutes em Disposition: 06/10/20 16:26 Discharged to Home. Impression: Chest pain, unspecified. - Condition is Stable. - Discharge Instructions: Nonspecific Chest Pain. - Medication Reconciliation Form, Thank You Letter, Antibiotic Education, Prescription Opioid Use form. - Follow up: Emergency Department; When: As needed; Reason: Worsening of condition. Follow up: Private Physician; When: 2 - 3 days; Reason: Recheck today's complaints, Continuance of care, Re-evaluation by your physician. - Problem is new. - Symptoms have improved. Addendum: 06/12/2020 07:37 Co-signature as Attending Physician, Nehemias Sierra MD I agree with the assessment and t w4 plan of care. 07/02/2020 19:04 Addendum: HPI: This 45 yrs old Female presents to ED with complaints of chest pain. p m1 Location: Midsternal. Onset: 30 minutes prior to arrival. Radiation: positive, to left arm. Duration: The symptoms are intermittent. Character: Sharp, burning. Associated signs and symptoms: Pertinent positives: nausea, anxiety - sees a therapist for her anxiety, shortness of breath, elevated blood pressure. Pertinent negatives: vomiting. Severity of symptoms: 4/10 pain. 19:14 Addendum: ROS: Constitutional: Negative for fever, chills, and weight loss. Eyes: p m1 Negative for injury, pain, redness, and discharge. ENT: Negative for injury, pain, and discharge. Neck: Negative for abdominal pain, vomiting, diarrhea, and constipation, Positive for nausea. Cardiovascular: Positive for chest pain, palpitations. Negative for edema, orthopnea. Respiratory: Positive for shortness of breath, Negative for cough, sputum, wheezing. Back: Negative for injury and pain. MS/Extremity: Negative for injury and deformity. Skin: Negative for injury, rash, and discoloration. Neuro: Negative for headache, weakness, numbness, tingling, and seizure. 23:30 Addendum: Exam: Constitutional: this is a well developed, well nourished patient who is p m1 awake, alert, an in no acute distress. Head/Face: Normocephalic, atraumatic. Chest/Axilla: Normal chest wall appearance and motion. Nontender with no deformity. No lesions are appreciated. Cardiovascular: Regular rate and rhythm with a normal S1 and S2. No gallops, murmurs, or rubs. Normal PMI, no JVD. No pulse deficits. Respiratory: Lungs have equal breath sounds bilaterally, clear to auscultation. No rales, rhonchi or wheezes noted. No increased work of breathing. Abdomen/GI: Soft, non-tender. No distention or tympany. No evidence of tenderness throughout. Back: No spinal tenderness. FROM intact. Skin: Warm dry with normal turgor. Normal color with no rashes, no lesions, and no evidence of cellulitis. MS/Extremity: Pulses equal, no cyanosis. Full, normal range of motion. Neuro: Exam negative for acute changes. Orientation is normal. Motor is normal and moves all four. Signatures: Dispatcher [employer] EDPaddy Calderón RN RN em Antonio Maharaj, ZULEIMA PROCUREMENT ACCOUNTANT pm1 Nehemias Sierra MD MD tw4 Crystal Sanchez RN RN ca1 Corrections: (The following items were deleted from the chart) 06/10 16:42 16:26 06/10/2020 16:26 Discharged to Home. Impression: Chest pain, unspecified. em Condition is Stable. Forms are Medication Reconciliation Form, Thank You Letter, Antibiotic Education, Prescription Opioid Use. Follow up: Emergency Department; When: As needed; Reason: Worsening of condition. Follow up: Private Physician; When: 2 - 3 days; Reason: Recheck today's complaints, Continuance of care, Re-evaluation by your physician. Problem is new. Symptoms have improved. pm1
[2020-06-10 16:46] VITALS: TEMP 99.4
[2020-06-10 16:48] VITALS: O2SAT 99
[2020-06-10 16:50] VITALS: BP 132/89
--- NOTE | 2020-06-13 10:32 | EKG ---
Test Date: 2020-06-10 Test Time: 11:47:31 Air Support Control Officer: KAMINI MEASUREMENT RESULTS: Intervals: Rate: 79 VA: 170 QRSD: 92 QT: 384 QTc: 440 [place]: P: 72 VA: 170 QRS: 94 T: 35 INTERPRETIVE STATEMENTS: Normal sinus rhythm Rightward axis Borderline ECG Compared to ECG 05/04/2018 20:23:43 Right-axis deviation now present Sinus bradycardia no longer present Electronically Signed On 06-13-20 10:28:09 BUSINESS SYSTEMS TECHNICIAN by Aleksey Yanes
== END 2020-06-10 16:42 | disposition home or self-care (01) ==
LOC: ER 11:34
DX: R07.9 Chest pain, unspecified (principal); F41.9 Anxiety disorder, unspecified; R53.82 Chronic fatigue, unspecified; G43.909 Migraine, unspecified, not intractable, without status migrainosus; Z88.3 Allergy status to other anti-infective agents
CPT/HCPCS: 36415; 71045; 80048; 80076; 83735; 83880; 84443; 84484; 85025; 85379; 85610; 93005; 99284; J2405